=== PATIENT | female | born 1995 | race Two or more races ===

== ENCOUNTER 2024-06-23 13:45 | Emergency (ER) | payer OTHER, MEDICAID, SELFPAY ==
[2024-06-23] VITALS (13 sets, daily range): BP systolic 136–172; BP diastolic 93–114; PULSE 74–86; RESP 16–20; TEMP 36.8–37.1; O2SAT 96–100; BMI 17.9; BMI 17.4
--- NOTE | 2024-06-23 14:41 | XR_ITS ---
Examination: Left knee 4 views Technique: AP oblique lateral axial left knee 4 views Exam date and time: June 23, 2024 1522 hrs. Indications: Left knee pain beginning 3 weeks ago. Findings: No fracture or dislocation Small knee effusion No significant joint narrowing Impression: Small knee effusion No patellar dislocation, no fracture
--- NOTE | 2024-06-23 14:43 | PD.EDRME ---
Rapid Medical Screening Exam RME Arrival date/time: 06/23/24 13:45 29-year-old female with past medical history of end-stage renal disease presents emergency department reporting was sent for low hemoglobin. Patient also endorses left knee pain. Chief Complaint: Recheck/Abnormal Lab/Rx Time Seen by Provider: 06/23/24 14:39 Vital signs: Vital Signs Temperature 98.7 F 06/23/24 14:15 Pulse Rate 85 06/23/24 14:15 Respiratory Rate 16 06/23/24 14:15 Blood Pressure 164/108 H 06/23/24 14:15 Pulse Oximetry (%) 100 06/23/24 14:15 Oxygen Delivery Method Room Air 06/23/24 14:15 Vital signs reviewed by provider: Yes
[2024-06-23 15:34] LABS: Basophils # (Auto) 0.1 Thou/mm3 (0.0-0.2); Basophils % (Auto) 2 % (0-2.5); Eosinophils # (Auto) 0.1 Thou/mm3 (0.0-0.5); Eosinophils % (Auto) 2 % (0-10); Hematocrit 20.7 % (36.0-46.0); Immature Granulocytes % (Auto) 0 % (0-0); Immature Granulocytes Auto 0.01 Thou/mm3 (0.00-0.00); Lymphocytes # (Auto) 1.3 Thou/mm3 (1.0-4.8); Lymphocytes % (Auto) 30 % (10-50); Mean Corpuscular HGB Conc 32.4 g/dl (31.0-37.0); Mean Corpuscular Hemoglobin 29.6 pg (25.0-35.0); Mean Corpuscular Volume 92 fL (80-100); Monocytes # (Auto) 0.4 Thou/mm3 (0.0-0.8); Monocytes % (Auto) 8 % (0-12); Neutrophils # (Auto) 2.6 Thou/mm3 (1.8-7.7); Neutrophils % (Auto) 58 % (37-80); Nucleated Red Blood Cell % 0 /100 WBC (0); Platelet Count 210 Thou/mm3 (140-440); RDW Standard Deviation 52.2 fL (36.4-46.3); Red Blood Count 2.26 Miln/mm3 (4.00-5.20); White Blood Count 4.4 Thou/mm3 (3.6-11.0)
[2024-06-23 15:47] LABS: Hemoglobin 6.7 g/dL (12.0-16.0)
[2024-06-23 15:52] LABS: Partial Thromboplastin Time 27.5 Seconds (22.0-36.0); Prothrombin Time 11.4 Seconds (9.0-12.2)
[2024-06-23 16:11] LABS: Alanine Aminotransferase < 7 U/L (10-49); Albumin, Serum 4.3 gm/dL (3.5-5.0); Albumin/Globulin Ratio 1.6 (1.2-2.2); Alkaline Phosphatase 69 U/L (46-116); Anion Gap 8 (7-16); Aspartate Amino Transferase < 8 U/L (0-34); BUN/Creatinine Ratio 7 Ratio (12-20); Bilirubin,Total 0.2 mg/dL (0.3-1.2); Blood Urea Nitrogen 41 mg/dL (9-23); Calcium 9.6 mg/dL (8.3-10.6); Calcium (Corrected) 9.6 mg/dL (8.5-10.1); Carbon Dioxide 31.7 mMol/L (20.0-31.0); Chloride 94 mMol/L (98-107); Creatinine (Component) 6.2 mg/dL (0.6-1.3); Estimated Creatinine Clearance 10.8 mL/min (>60); Globulin 2.7 gm/dL (2.3-3.5); Glucose 74 mg/dL (74-106); Osmolality,Calculated 277 (275-295); Potassium 5.5 mMol/L (3.4-5.1); Sodium 134 mMol/L (136-145); eGFR 9 See Note
[2024-06-23 16:23] LABS: Path Review Blood Smear Sent to Pathologist
--- NOTE | 2024-06-23 17:13 | EDNOTE_ITS ---
ED Recheck Abnl Lab Rx-RME/HPI General Chief Complaint: Recheck/Abnormal Lab/Rx Stated Complaint: LOW HGB @DIALYSIS AND LEFT KNEE PAIN Time Seen by Provider: 06/23/24 14:39 Arrival date/time: 06/23/24 13:45 Limitations: no limitations RME / HPI RME / HPI narrative: 06/23/24 13:45 29-year-old female with past medical history of end-stage renal disease presents emergency department reporting was sent for low hemoglobin. Patient also endorses left knee pain. DR. BOYER MAIN ED EVALUATION: 29 year old female presents to the Emergency Department with complaint of palpitations and muscle cramps that are worse after her dialysis including her dialysis yesterday. She had a routine blood test done by dialysis on Tuesday and was called today to come to the emergency department due to a low hemoglobin. Symptoms are moderate. She also complains of chronic left knee pain which which has been worsening for the last two weeks. Pain is described as aching and rated mild to moderate in severity. No recent trauma during these two weeks. She feels like that it?s ?giving out?. She denies any swelling. She states with each transfusion she normally does well with ?two units?. She denies any bleeding. 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 Social Hx: No tobacco, alcohol, or substance use. Related Data Home Medications ?Medication ?Instructions ?Recorded ?Confirmed metoprolol tartrate 50 mg tablet 50 mg PO BID 11/22/21 02/16/22 minoxidil 10 mg tablet 10 mg PO BID 11/22/21 02/16/22 temazepam 15 mg capsule 15 mg PO DAILY 11/22/21 02/16/22 doxazosin 4 mg tablet 4 tab PO HS 02/16/22 02/16/22 Allergies Allergy/AdvReac Type Severity Reaction Status Date / Time adhesive tape Allergy Severe Hives Verified 06/23/24 13:48 Penicillins Allergy Severe POSSIBLE Verified 06/23/24 13:48 RASH aspirin AdvReac Severe NOT TO Verified 06/23/24 13:48 TAKE D/T KIDNEY PROBLEM promethazine AdvReac Severe TWITCHES Verified 06/23/24 13:48 Review of Systems Review of Systems Systems Reviewed: All systems reviewed, normal except as documented Narrative Review of Systems: GEN: No fever, no chills, no weight loss EYES: No discharge, no visual changes, no pain HEENT: No ear pain, no congestion, no sore throat PULM: No shortness of breath, no cough, no congestion CV: No chest pain, no dyspnea on exertion, + palpitations GI: No nausea, no vomiting, no diarrhea, no pain, no constipation : No frequency, no urgency and no dysuria MUSC/SKEL: + muscle cramps; + chronic left knee pain (see HPI), no back pain SKIN: No rash PSYCH: No hallucinations, no depression HEME/LYMPH: No easy bleeding or bruising tendencies NEURO: No weakness, no headache Past Medical History Social History SMOKING STATUS: Never smoker SUBSTANCE USE: does not use ALCOHOL: Never Past Medical History Comments PMH COMMENT: PMHx: Renal disease of which she requires a blood transfusion anywhere from 2 to 3 times in a year; congenital atrophy of kidneys, 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 ED Exam General Limitations: Present no limitations General appearance: Present alert and in no apparent distress Head Head exam: Present atraumatic, normocephalic and normal inspection Eye Eye exam: Present normal appearance, PERRL and EOMI ENT ENT exam: Present normal exam, normal oropharynx and mucous membranes moist Neck Neck exam: Present normal inspection, full ROM and trachea midline Chest Chest inspection: Present normal inspection and symmetric chest wall rise Respiratory Respiratory exam: Present normal lung sounds bilaterally Cardiovascular Cardiovascular exam: Present regular rate, normal rhythm and normal heart sounds Abdominal Exam Abdominal exam: Present soft and normal bowel sounds Extremities Exam Extremities exam: Present normal inspection and full ROM Back Exam Back exam: Present normal inspection and full ROM Neurological Exam Neurological exam: Present alert, oriented X3 and CN II-XII intact Psychiatric Psychiatric exam: Present normal affect and normal mood Skin Skin exam: Present warm, dry, intact and normal color Course Course Course Narrative: 1800: Patient was signed out to Dr. Castillo. Past medical, surgical, social and family history reviewed. Vitals and home medications reviewed. Results and treatment plan discussed. They will assume the care of the patient at this time and will follow the patient, pending reevaluation after blood transfusion. Quality Measures none Orders Category Date Time Status Transfuse,blood/blood products NOW Care 06/23/24 17:06 Active XR knee comp LT 4V Stat Exams 06/23/24 14:41 Completed CBC Stat Lab 06/23/24 15:15 Completed CMP [Comprehensive Metabolic Panel] Stat Lab 06/23/24 15:15 Completed PT [Prothrombin Time with INR] Stat Lab 06/23/24 15:15 Completed PTT [Partial Thromboplastin Time] Stat Lab 06/23/24 15:15 Completed Path Review Blood Smear Stat Lab 06/23/24 15:15 Completed Type and Screen Stat Lab 06/23/24 15:15 Results prbc [Red Blood Cells] Stat Lab 06/23/24 15:15 Results Vital Signs Vital signs: Vital Signs Temperature 98.7 F 06/23/24 14:15 Pulse Rate 85 06/23/24 14:15 Respiratory Rate 16 06/23/24 14:15 Blood Pressure 164/108 H 06/23/24 14:15 Pulse Oximetry (%) 100 06/23/24 14:15 Oxygen Delivery Method Room Air 06/23/24 14:15 Recheck / Abnormal Lab / Rx MDM Narrative MDM Narrative:: Ms. Boyd presents to the emergency department with concerns for low hemoglobin on a routine outpatient blood test. She does have some mild symptomatology to include palpitations and possibly some claudication of her legs. She averages approximately 2-3 transfusions a year of which this would essentially be her second 1 this year. This appears to be her normal outpatient pattern without any signs of acute bleeding. She was transfused here and will have a posttransfusion assessment given her end-stage renal/dialysis status. This will be to ensure that we are not giving her too much fluid/overloading. I, Kelly Bolden, am scribing for and in the presence of Dr. Boyer. 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 How is presenting disease/condition affected by chronic disease/condition?: caused by Evaluation data The following diagnostics were reviewed and interpreted by me:: lab results and radiology exam(s) Lab and/or radiology exams considered but not ordered:: none Interpretation Summary: Procedure(s): XR knee comp LT 4V Accession Number(s): [id number] cc: Florencio Browning MD; Chino Winter MD; Ann Vilchis (SKI PATROLLER)César SKI PATROLLER Examination: Left knee 4 views Technique: AP oblique lateral axial left knee 4 views Exam date and time: June 23, 2024 1522 hrs. Indications: Left knee pain beginning 3 weeks ago. Findings: No fracture or dislocation Small knee effusion No significant joint narrowing Impression: Small knee effusion No patellar dislocation, no fracture Dictated By: Chino Winter MD Medications / Prescriptions Medications or Prescriptions considered but not ordered:: none Medication administrations:: see above if any Consultations Consultation(s) initiated? (list below): No Diagnosis Recheck Differential Diagnosis: other (renal disease, anemia, dehydration) Most likely diagnosis given after review of the tests above:: Renal disease and anemia. Patient signout to the assistant casino shift manager provider. Admission Indicated Admission indicated?: not indicated Explain why admission is indicated or not indicated:: No final disposition plan at this time. Patient signout to the assistant casino shift manager provider. Admission Request Was there a request for admission?: No Disposition Plan Disposition Plan: other (specify) (Patient signout to the assistant casino shift manager provider.) Discharge Plan Plan Patient Disposition: HOME (Self Care) Prescriptions/Referrals Prescriptions/Med Rec: No Action doxazosin 4 mg tablet 4 tab PO HS Patient Comments: TAKE ONE TABLET BY MOUTH EVERY DAY AT BED TIME metoprolol tartrate 50 mg tablet 50 mg PO BID minoxidil 10 mg tablet 10 mg PO BID temazepam 15 mg capsule 15 mg PO DAILY Referrals: Florencio Browning MD [Primary Care Provider] - In 1 week Problem List Clinical Impression: Anemia due to chronic kidney disease, Knee strain Patient/Caregiver Discharge Instructions Education Materials: Anemia and Kidney Disease, ED Knee Sprain, ED Renal Insufficiency Additional Instructions: You can continue with your normal dialysis schedule, next dialysis on Tuesday. Follow-up with your primary care doctor in 2 to 3 days for recheck. You can return to the emergency department sooner if symptoms worsen or if he notes any new, concerning issues. Print Language: Maori Stand Alone Forms: Bridget Award Info., Patient Portal Info Letter
--- NOTE | 2024-06-23 19:46 | PD.EDADDENDU ---
Emergency Room Addendum <Kelly Bolden - Last Filed: 06/23/24 19:46> Addendum Narrative: 1800: Care assumed from Dr. Diez, the previous shift emergency physician. Past medical, surgical, social and family history reviewed. Vitals and home medications reviewed. I will assume the care of the patient at this time, pending reevaluation after blood transfusion and final disposition. Please refer to the emergency department record for history and examination from initial visit.? Physical exam by me shows patient under no acute distress at this time. <Luis Daniel Castillo MD - Last Filed: 06/24/24 00:56> Addendum Narrative: 1800: Care assumed from Dr. Diez, the previous shift emergency physician. Past medical, surgical, social and family history reviewed. Vitals and home medications reviewed. I will assume the care of the patient at this time, pending reevaluation after blood transfusion and final disposition. The patient was signed out to me pending 2 units of packed red blood cells transfusion. He said that if the patient does not have any trouble with the transfusion, the patient can be discharged home on his DC instruction. Please refer to the emergency department record for history and examination from initial visit.? 12:55 AM, patient is status post 2 units of packed red blood cell transfusion. Physical exam by me shows patient under no acute distress at this time. And O2 saturation is normal on room air. And she is eager to go home. She does have a ride.
[2024-06-23] MEDS: MORPHINE SULF INJ 10 MG/ML VIAL 2 MG IVP (20:15)
[2024-06-23] MEDS: DiphenhydrAMINE INJ 50 MG/ML VIAL 12.5 MG IVP (20:15)
[2024-06-24 01:03] VITALS: BP 145/94; PULSE 80; RESP 18; TEMP 37; O2SAT 99
== END 2024-06-24 01:03 | disposition home or self-care (01) ==
PROVIDERS: Emergency Provider Emergency Medicine; PCP Family Medicine
DX: N18.6 End stage renal disease (principal); D63.1 Anemia in chronic kidney disease; S86.912A Strain of unspecified muscle(s) and tendon(s) at lower leg level, left leg, initial encounter; X58.XXXA Exposure to other specified factors, initial encounter
CPT/HCPCS: 36415; 36430; 73564; 80053; 85025; 85610; 85730; 86850; 86900; 86901; 86923; 96374; 96375; 99285; J1200; J2270; P9016